=== PATIENT | female | born 1990 | race African-American/Black ===

== ENCOUNTER 2016-11-17 09:34 | Emergency (ER) | payer OTHER ==
[~2016-11-17] VITALS: Ht 157.5 cm; Wt 56.7 kg
--- NOTE | ~2016-11-17 | US98 ---
[facility] A Service of [facility] RADIOLOGY TEXT RESULTS PATIENT: DELIA DUFFY LOCATION: [place] : 91 UNIT #: [id number] AGE: [address]: Rebecca Roasles SEX: F ORDER DR: [id number] [facility] [address] [place], [place] [address] [id number] E MR#: [id number] Acc #: [id number] NAME: DELIA DUFFY : 1990 SEX: F STUDY DATE/TIME: 11/17/2016 10:38 UNIT: [place] ROOM: STUDY DESCRIPTION: US Pelvic Non-OB Complete Attending Physician: Rebecca Rosales Pa-C Ordering Physician: Ed Ross Logan M.D. Primary Care Physician: No Primary Care Physician MEDICAL IMAGING REPORT This report is preliminary unless electronic signature is present EXAMINATION Transabdominal and transvaginal pelvic ultrasound. DATE 11/17/2016 HISTORY Vaginal bleeding for 2 weeks with epigastric pain and shortness of breath for 1 day. COMPARISON None. TECHNIQUE Transabdominal imaging is performed for generalized visualization of pelvic structures while transvaginal imaging was performed for more detailed evaluation of the adnexa. FINDINGS Uterus measures 7.3 x 3.9 x 5.5 cm. The myometrium has a normal appearance without focal abnormality. The endometrial bilayer thickness is 6 mm, within normal limits, and no focal endometrial abnormalities identified. Small amount of focal fluid is fluid is seen within the upper margin of the endometrial canal measuring about 2 mm in thickness. Left ovary measures 3.1 x 1.9 x 2.6 cm and contains a few small peripheral follicles, the dominant follicle measuring about 7 mm. The left ovary demonstrates normal color and spectral Doppler flow. The right ovary measures 3.2 x 3.4 x 1.9 cm and contains a few small peripheral follicles, the dominant follicle measuring about 6 mm. The right ovary demonstrates normal color and spectral Doppler flow. [facility] A Service [facility] RADIOLOGY TEXT RESULTS PATIENT: DELIA DUFFY LOCATION: [place] : 91 UNIT #: [id number] AGE: [address]: Rebecca Rosales SEX: F ORDER DR: No cystic or solid ovarian lesion is identified. Trace pelvic free fluid is seen adjacent to the right ovary. IMPRESSION 1. There is a small amount of fluid within the endometrial canal. Otherwise, the endometrium has a normal appearance. Uterine myometrium is unremarkable. 2. Normal sonographic appearance of each ovary. Normal flow to each ovary. 3. Small amount of pelvic free fluid. Dictated by... Cayla Hair M.D. THIS IS AN ELECTRONICALLY VERIFIED REPORT Cayla Hair M.D. at 11/18/2016 2:20 PM CARLOS/cassidy TD: 11/17/2016 16:44 JOB #: [id number] MEDICAL IMAGING REPORT Page 1 of 1 COPY
[2016-11-17 10:25] LABS: URINE SOURCE CLEAN CATCH
[2016-11-17 10:29] LABS: BASOPHIL% 0.4 % (0-2.5); EOSINOPHIL# 0.2 X10e3 (0-0.7); EOSINOPHIL% 2.2 % (0.0-7.0); HEMATOCRIT 34.4 % (35.0-45.0); HEMOGLOBIN 11.5 gm/dL (12.0-16.0); LYMPHOCYTE# 1.6 X10e3 (1.0-3.5); MEAN CELL VOLUME 87.6 FL (83-96); MEAN CORPUSCULAR HEMOGLOBIN 29.3 PG (28-34); MEAN CORPUSCULAR HGB CONC 33.5 g/dL (30-36); MEAN PLATELET VOLUME 8.3 FL (6.5-11.5); MONOCYTE# 0.9 X10e3 (0-1.0); MONOCYTE% 12.2 % (3.0-12.0); NEUTROPHIL# 4.4 X10e3 (1.5-7.1); NEUTROPHIL% 62.2 % (40-75); PLATELET COUNT 253 X10e3 (140-420); RED BLOOD COUNT 3.93 X10e (3.90-5.30); RED CELL DISTRIBUTION WIDTH 13.4 % (11.0-15.5); WHITE BLOOD COUNT 7.1 X10e3 (4.0-10.5)
[2016-11-17 10:30] LABS: DIFF IND NO
[2016-11-17 10:32] LABS: URINE APPEARANCE CLEAR; URINE BILIRUBIN NEG (NEG); URINE BLOOD 3+ (NEG); URINE COLOR YELLOW; URINE GLUCOSE NEG (NEG); URINE KETONE NEG (NEG); URINE LEUKOCYTE ESTERASE 1+ (NEG); URINE NITRATE NEG (NEG); URINE PROTEIN 1+ (NEG); URINE UROBILINOGEN 0.2 MG/DL (NEG)
[2016-11-17 10:34] LABS: CULTURE INDICATED? YES; U HYALINE CASTS AUWI 0-2 /[LPF]; URBCS1 AUWI INNUM /[HPF] (0-2); URINE BACTERIA AUWI 1+ (NEGATIVE); URINE SQUAMOUS EPITHELIAL CELL OCC /[HPF]
[2016-11-17 11:11] LABS: BILIRUBIN, DIRECT 0.1 mg/dL (0.0-0.2); BILIRUBIN,INDIRECT 0.1 mg/dL (0.0-0.9); BILIRUBIN,TOTAL 0.2 mg/dL (0.2-2.0); BUN/CREATININE RATIO 17.77; CALCIUM SERUM 9.5 mg/dL (8.4-10.2); CREATININE SERUM 0.9 mg/dL (0.6-1.4); GLOM FILT RATE Estimated 103.1 mL/min (>60); POTASSIUM 3.7 mmol/L (3.5-5.1); PROTEIN TOTAL SERUM 6.6 g/dL (6.0-8.3)
== END 2016-11-17 12:42 | disposition home or self-care (01) ==
LOC: CED 09:34
PROVIDERS: Physician Assistant
DX: K29.70 Gastritis, unspecified, without bleeding (principal); F17.200 Nicotine dependence, unspecified, uncomplicated
CPT/HCPCS: 36415; 76830; 76856; 80048; 80076; 81003; 83690; 84703; 85025; 86677; 87086; 87088; 87186; 96361; 96374; 99284; J2405